=== PATIENT | male | born 1955 | race Caucasian/White ===

== ENCOUNTER 2025-03-30 16:37 | Outpatient (REF) | payer OTHER, SELFPAY ==
--- NOTE | ~2025-03-30 | XR_ITS ---
EXAMINATION: XR CHEST 2 VIEWS HISTORY: PULMONARY DISEASE COMPARISON: There are no prior studies for comparison. FINDINGS: PA and lateral views of the chest are submitted. The lungs are expanded and clear. There is no pleural effusion, pneumothorax, or pulmonary vascular congestion. The heart is normal in size. There is degenerative disc disease of the spine. XR/XR chest 2V IMPRESSION: Clear lungs. Electronically signed by: John Ascencio MD 04/02/2025 08:15 AM EDT
--- OUTSIDE RECORDS SUMMARY | 2025-03-30 16:43 | XMS_ITS ---
Author Organization John Wynn III, MD Address [address] [place] [address] [place] [phone] Care Team Providers Care Technology Officer Name Role Phone John Wynn Primary Care Provider REASON FOR VISIT Refills Medications Medication SIG (Take, Route, Fr equency, Duration) Notes Start Date End Date Status metFORMIN HCl 1000 MG 1 tablet with a me al Orally Twice a day for 30 days Active Social History Sex Assigned At : Social History Observation Description Sex Assigned At Male Encounters Encounter Location Date Provider Diagnosis John Wynn III, MD [address] [place] [address] [place] [id number] 01/22/2025 John Wynn Type 2 diabetes mellitus without complication E11.9 Assessments Encounter Date Diagnosis (ICD Code) Assessment Notes Treat ment Notes Treatment Clinical Notes 01/22/2025 Type 2 diabetes mellitus without complication (ICD-10 - E11.9) His hemoglobin A1c is 7.8. He is compliant with all his medications. He is trying to lose weight and consume a healthy diet. He is up-to-date with ophthalmology. He does not wish to test fasting glucose. He will be seen frequently. Current therapy was continued. We had a long discussion today about lifestyle moodification, regular exercise, healthy diabetic diet and aggressive weighht loss. Plan Of Treatment Medication Medication Name Sig Start Date Stop Date Notes metFORMIN HCl 1000 MG 1 tablet with a me al Orally Twice a day for 30 days Next Appt Details Provider Name:John Petersonrne, 05/04/2025 04:00:00 PM, [address] [place] [address] [address], [place], [id number], Provider Name:John Pickensne, 04/01/2026 04:00:00 PM, [address] [place] [address] [address], [place], [address], Progress Notes * Wood BRAGADOB:1955 (69 yo M)Acc No.[id number]:01/22/2025 Patient:?Wood BRAGA :1955???Age:69 Y???Sex:Male Address:[address] [place] [id number] * Refills? Refill metFORMIN HCl Tablet, 1000 MG, Orally, 60 Tablet, 1 tablet with a meal, Twice a day, 30 days, Refills=11 * true * Date:? Generated for Navi lowery/Hamilton/eTransmitting on:?03/30/2025 04:43 PM EDT
--- OUTSIDE RECORDS SUMMARY | 2025-03-30 16:43 | XMS_ITS ---
Author Organization John Wynn III, MD Address [address] [place] [address] [place] [address] Care Team Providers Care Magnetic Locater Name Role Phone John Wynn Primary Care Provider Allergies Allergen (clinical drug ingredient) Drug/Non Drug Allergy documented on EMR Reaction Allergy Type Onset Date Status Lucien Eye Drop Dilator (uncoded) Unknown Allergy Active REASON FOR VISIT Anxiety, Depression, Hypertension, Diabetes, Hyperlipidemia, Obesity, COPD Medications Medication SIG (Take, Route, Fr equency, Duration) Notes Start Date End Date Status Simvastatin 40 MG TAKE 1 TABLET BY ONCE DAILY IN THE EVENING Active metFORMIN HCl 1000 MG 1 tablet with a me al Orally Twice a day Active glyBURIDE 5 MG 1 tablet Orally Twice a day Active Sertraline HCl 50 MG 1 tablet Orally Onc e a day for 30 days 02/02/2025 Active Social History Tobacco Use: Social History Observation Description Date Details (start date - stop date) Current Smoker NA - NA Sex Assigned At : Social History Observation Description Sex Assigned At Male Tobacco Use/Smoking Question Answer Notes Patient is a current smoker How often do you smoke cigarettes? every day How many cigarettes a day do you smoke? 6-10 How soon after you wake up d o you smoke your first cigarette? 31-60 minutes Are you interested in quitting? Not ready to cee t Additional Findings: Tobacco User Light cigarett e smoker ((1-9 cigs/day) Problems Problem Type SNOMED Code ICD Code Onset Dates Problem Status W/U Status Risk Notes Problem [id number] Overweight (E66.3) Active confirmed He has lost 11 pounds in his body mass index is 28. We discussed diet and nutrition at length today. 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 I have given him a trial of sertraline for anxiety disorder and depression. He is going to call me if he has any side effects. Vital Signs Temperature 99.3 degrees Fahrenheit 02/03/20 25 Blood pressure systolic 130 mm Hg 02/03/20 25 Blood pressure diastolic 87 mm Hg 025 Heart Rate 90 /min 02/02/2025 Height 65 in 02/02/2025 Weight 172 lbs 02/02/2025 BMI 28.62 kg/m2 02/02/2025 Encounters Encounter Location Date Provider Diagnosis John Wynn III, MD [address] [place] [address] [facility] [address] 02/02/2025 John Wynn Type 2 diabetes joe itus without complication E11.9 ; Chronic obstructive pulmonary disease, unspecified COPD type J44.9 ; Essential hypertension I10 ; Tobacco dependence F17.200 ; Hyperlipidemia E78.5 ; BPH (benign prostatic hyperplasia) N40.0 ; Overweight E66.3 and Agitated depression F32.2 Assessments Encounter Date Diagnosis (ICD Code) Assessment Notes Treat ment Notes Treatment Clinical Notes 02/02/2025 Type 2 diabetes mellitus without complication (ICD-10 - E11.9) His hemoglobin A1c is 6.7. He is compliant with all his medications. He is trying to lose weight and consume a healthy diet. He is up-to-date with ophthalmology. He does not wish to test fasting glucose. He will be seen frequently. Current therapy was continued. We had a long discussion today about lifestyle moodification, regular exercise, healthy diabetic diet and aggressive weighht loss. 02/02/2025 Chronic obstructive pulmonary disease, unspecified COPD type (ICD-10 - J44.9) His breathing is unlabored today and he is moving air without difficulty. His mucous membranes are pink. The COPD is stable. I reviewed with him a strategy for weight loss, and smoking cessation. 02/02/2025 Essential hypertension (ICD-10 - I10) His blood pressure today is 130/87 and he has been compliant with his medications. I strongly recommended sodium restriction and aggressive weight loss. 02/02/2025 Tobacco dependence (ICD-10 - F17.200) I have strongly recommended he stop smoking ;and have discussed several strategies for smoking cessation. 02/02/2025 Hyperlipidemia (ICD-10 - E78.5) the current fasting lipid profile shows his values to be in range. No changes needed in his regimen. 02/02/2025 BPH (benign prostati c hyperplasia) (ICD-10 - N40.0) He rises from sleep about twice a night to urinate. it depends upon fluid intake. We discussed ways in which lifestyle modification. Reduce his nocturia. 02/02/2025 Overweight (ICD-10 - E66.3) He has lost 11 pounds in his body mass index is 28. We discussed diet and nutrition at length today. 02/02/2025 Agitated depression (ICD-10 - F32.2) He is depressed and losing weight and unable to relax with racing thoughts at night and insomnia. I have given him a trial of sertraline for anxiety disorder and depression. He is going to call me if he has any side effects. Plan Of Treatment Medication Medication Name Sig Start Date Stop Date Notes Simvastatin 40 MG TAKE 1 TABLET BY MARIANO TH ONCE DAILY IN THE EVENING metFORMIN HCl 1000 MG 1 tablet with a me al Orally Twice a day glyBURIDE 5 MG 1 tablet Orally Twice a day Sertraline HCl 50 MG 1 tablet Orally Onc e a day for 30 days 02/02/2025 Next Appt Details Follow Up: 3 Weeks, Reason: Office visit Provider Name:John Wynn, 05/04/2025 04:00:00 PM, [address] [place] [address] [address], [place], [phone], Provider Name:John Wynn, 04/01/2026 04:00:00 PM, [address] [place] [address] [place], [phone], Progress Notes * Randy BRAGA:1955 (69 yo M)Acc No.[id number]:02/02/2025 Progress Notes Patient:Wood ZAMORA Provider:?John Wynn MD :1955???Age:69 Y???Sex:Male Zen e:02/02/2025 Address:[address] [place] [address], [facility] [place], [id number] Subjective: * Chief Complaints: * ???AnxietyDepressionHyperten sionDiabetesHyperlipidemiaObesityCOPD * HPI: ???COVID-19 Screening:?He comes to the office today having requested the visit because he is feeling very anxious and depressed.? He is working at a new job now which she likes very much but they want him to take more responsibility.? He says he has difficulty sleeping as his mind is racing.? He worries about everything and cannot relax.? He never feels rested.? He WEIGHS feels fail tasks.? This is making him exhausted.? I have discussed anxiety disorder with him at some length that really decided to try a course of sertraline.? If necessary he will be referred to a therapist for cognitive therapy. Blood work that was done January 20, 2025 showed white blood cell count 7.6 hematocrit 44.3 platelets 205 glucose 123 BUN 9 creatinine 0.69 total cholesterol 171 triglycerides 76 HDL 55 LDL 102 he passed a 0.1 A1c 6.7. ?Questions?Have you had any new onset fever, chills, cough, congestion, sore throat, shortness of breath, muscle aches??No * ROS:?General/Constitutional:?pain?only normal aches and pains.?Chills?denies.?Fatigue?admits.?Fever?denies.?ENT:?Decreased hearing?denies.?Respiratory:?Cough?resolved.?Cardiovascular:?Chest pain with exertion?denies.?Dyspnea on exertion?denies.?Shortness of breath?denies.?Gastrointestinal:?Constipation?occasional.?Decreased appetite?denies.?Diarrhea?denies.?Heartburn?denies.?Nausea?denies.?Rectal bleeding?denies.?Vomiting?denies.?Hematology:?bruising?denies.?petechiae?denies.?Swollen glands?none have been noted.?Genitourinary:?Frequent urination?once a night.?Musculoskeletal:?Muscle aches?denies.?Painful joints?denies.?Sciatica?denies.?Weakness?denies.?Skin:?Itching?denies.?Rash?denies.?Skin lesion(s)?denies.?Neurologic:?Difficulty speaking?denies.?Dizziness?denies.?Headache?denies.?Low back pain?denies.?Psychiatric:?Depressed mood?which is moderate.? * Medical History:? * Surgical History:?vasectomy tonsillectomy No history * Hospitalization/Major Diagno stic Procedure:?No history * Family History:?Father: dece ased 66 yrs, cancer, diagnosed with Cancer.?Mother: 77 yrs, alzheimer.?1 brother(s) , 1 sister(s) - healthy. 2 son(s) - healthy. .? * Social History:?Tobacco Use:?Tobacco Use/Smoking?Patient is a?current smoker ?How often do you smoke cigarettes??every day ?How many cigarettes a day do you smoke??6-10 ?How soon after you wake up do you smoke your first cigarette??31-60 minutes ?Are you interested in quitting??Not ready to quit ?Additional Findings: Tobacco User?Light cigarette smoker ((1-9 cigs/day) ???Patient smokes cigars. 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 He was born in [facility]. Smoking: The patient has reduced his smoking from seven packs a week to two packs a week and has set a goal to further reduce this to one pack a week by Humphrey. * Medications:?TakingSimvastat in 40 MG Tablet TAKE 1 TABLET BY MOUTH ONCE DAILY IN THE EVENING glyBURIDE 5 MG Tablet 1 tablet Orally Twice a day metFORMIN HCl 1000 MG Tablet 1 tablet with a meal Orally Twice a day Medication List reviewed and reconciled with the patientTaking Simvastatin 40 MG Tablet TAKE 1 TABLET BY MOUTH ONCE DAILY IN THE EVENING Taking glyBURIDE 5 MG Tablet 1 tablet Orally Twice a day Taking metFORMIN HCl 1000 MG Tablet 1 tablet with a meal Orally Twice a day Medication List reviewed and reconciled with the patient * Allergies:?Lucien Eye Drop Dilatorno[Allergies Verified] Objective: * Vitals:?Ht: 65, Wt:172, BMI: 28.62, BP:130/87, HR:90, Temp:99.3, Ht-cm: 165.1, Wt-k.02. * Examination: ???General Examination: ?GENERAL APPEARANCE:?pleasant, well nourished, well developed, in no acute distress, calm and relaxed, overweight, man.?HEAD:?atraumatic, normocephalic.?EYES:?eomi, perrla, anicteric, conjugate.?EARS:?normal.?NOSE:?septum intact.?ORAL CAVITY:?normal, unremarkable.?NECK/THYROID:?no jugular venous distention, no carotid bruit, thyroid normal.?LYMPH NODES:?no enlarged lymph nodes,spleen normal.?SKIN:?no suspicious lesions, anicteric.?HEART:?no clicks, gallops, murmurs, or rubs, regular rhythm, S1, S2 normal, no s3, or vascular bruits.?LUNGS:?, diminished breath sounds throughout, no wheezes, rales, rhonchi, good air movement.?BREASTS:??no masses palpable bilaterally.?ABDOMEN:?bowel sounds normal, no ascites, no organomegaly, no mass, overweight.?RECTAL EXAM:?not examined.?MUSCULOSKELETAL:?extremities unremarkable, no clubbing, cyanosis or edema.?PERIPHERAL PULSES:?normal.?NEUROLOGIC:?alert and oriented, cranial nerves 2-12 grossly intact, deep tendon reflexes 2+ symmetrical, motor strength normal upper and lower extremities, sensory exam intact.?PSYCH:?alert, oriented, thought process logical, goal directed, speech clear, cognitive function intact, Appears anxious and depressed, speech is pressured.? Assessment: * Assessment: 1.?Chronic obstructive pulmo nary disease, unspecified COPD type - J44.9 (Primary)???Notes :His breathing is unlabored today and he is moving air without difficulty. His mucous membranes are pink. The COPD is stable. I reviewed with him a strategy for weight loss, and smoking cessation.???2.?Type 2 diabetes mellitus without complication - E11.9???Notes :His hemoglobin A1c is 6.7. He is compliant with all his medications. He is trying to lose weight and consume a healthy diet. He is up-to-date with ophthalmology. He does not wish to test fasting glucose. He will be seen frequently. Current therapy was continued. We had a long discussion today about lifestyle moodification, regular exercise, healthy diabetic diet and aggressive weighht loss.???3.?Essential hypertension - I10???Notes :His blood pressure today is 130/87 and he has been compliant with his medications. I strongly recommended sodium restriction and aggressive weight loss.???4.?Tobacco dependence - F17.200???Notes :I have strongly recommended he stop smoking ;and have discussed several strategies for smoking cessation.???5.?Hyperlipidemia - E78.5???Notes :the current fasting lipid profile shows his values to be in range. No changes needed in his regimen.???6.?BPH (benign prostatic hyperplasia) - N40.0???Notes :He rises from sleep about twice a night to urinate. it depends upon fluid intake. We discussed ways in which lifestyle modification. Reduce his nocturia.???7.?Overweight - E66.3???Notes :He has lost 11 pounds in his body mass index is 28.? We discussed diet and nutrition at length today.???8.?Agitated depression - F32.2???Notes :He is depressed and losing weight and unable to relax with racing thoughts at night and insomnia. I have given him a trial of sertraline for anxiety disorder and depression.? He is going to call me if he has any side effects.??? Plan: * Treatment: 2.?Others? Continue Simvastatin Tablet, 40 MG, TAKE 1 TABLET BY MOUTH ONCE DAILY IN THE EVENING.?? * Procedure Codes:? * Preventive Medicine:? ??Counseling:?Care goal follow-up plan:?Counseling for abnormal BMI given?Yes ?Above Normal BMI Follow-up?Dietary management education, guidance, and counseling, Dietary needs education ?Smoking/Tobacco Use?Patient counseled on the dangers of tobacco use and urged to quit.?02/02/2025 ?Patient Lifestyle Goals?Patient wants to quit ?Treatment Goals?Set a quit date, Cut down by 1 cigarette a week ?Barriers?Social smoker, Stress ?Self-Management Plan?Make a plan to cut down number of cigarettes over time and set a date to work towards quitting ??DM Care Plan:?Patient Lifestyle Goals?Patient wants to be able to manage diabetes without too much effort.?Treatment Goals?HbA1C < 7.0, Blood Sugars less than < 115.?Barriers?no barriers.?Self-Managment Goals?Work on weight loss, with a goal of losing 1 lb per week.? ??COPD Care Plan:?Patient Lifestyle Goals?Reduce number of ED and hospitalizations, Relieve symptoms and improve quality of life, Be able to be more active with friends and family.?Treatment Goals?Quit Smoking.?Barriers?no barriers.?Self-Managment Goals?Make a plan for quitting smoking.? * Follow Up:?3 Weeks (Reason: Office visit) * Images: * Sign off status: Completed true * Provider:?John Wynn MD Date:?01/20 Generated for Navi lowery/Hamilton/Jennifer on:?03/30/2025 04:43 PM EDT History and Physical Notes * HPI (History of Present Illness) Category Sub-Category Detail Notes COVID-19 Screening Questions Have you had any new onset fever, chills, cough, congestion, sore throat, shortness of breath, muscle aches?: No Examination Category Sub-Category Detail Notes General Examination GENERAL APPEARANCE: pleasant , well nourished, well developed, in no acute distress, calm and relaxed, overweight, man HEAD: atraumatic, normocep halic EYES: eomi, perrla, anicte yunior, conjugate EARS: normal NOSE: septum intact NECK/THYROID: no jugular venous di stention, no carotid bruit, thyroid normal HEART: no clicks, gallops, murmurs, or rubs, regular rhythm, S1, S2 normal, no s3, or vascular bruits LUNGS: , diminished breath sounds throughout, no wheezes, rales, rhonchi, good air movement ABDOMEN: bowel sounds normal, no ascites, no organomegaly, no mass, overweight NEUROLOGIC: alert and oriented, cranial nerves 2-12 grossly intact, deep tendon reflexes 2+ symmetrical, motor strength normal upper and lower extremities, sensory exam intact SKIN: no suspicious lesion s, anicteric PERIPHERAL PULSES: normal BREASTS: no masses palpable b ilaterally MUSCULOSKELETAL: extremities unremark able, no clubbing, cyanosis or edema LYMPH NODES: no enlarged lymph no sofía,spleen normal RECTAL EXAM: not examined PSYCH: alert, oriented, tho ught process logical, goal directed, speech clear, cognitive function intact, Appears anxious and depressed, speech is pressured ORAL CAVITY: normal, unremarkable
--- OUTSIDE RECORDS SUMMARY | 2025-03-30 16:43 | XMS_ITS ---
Author Organization John Wynn III, MD Address [address] [place] [address] [place] [address] Care Team Providers Care Shade Hanger Name Role Phone John Wynn Primary Care Provider Allergies Allergen (clinical drug ingredient) Drug/Non Drug Allergy documented on EMR Reaction Allergy Type Onset Date Status No Known Food Allergy Unknown Drug Allergy Active Lucien Eye Drop Dilator (uncoded) Unknown Allergy Active Results Component Value Reference Range Notes URINE DIP STICK Reviewed date:03/30/2025 04:22:02 PM Interpretation: Performing Lab: Notes/Report: SG 1.030 1.005 - 1.025 pH 5.0 5.0 - 9.0 ALEC 70 + Negative - NIT Negative Negative - PRO 15 Negative - Trace GLU Negative Negative - KET 5 Negative - UBG 0.2 0.1 - 1.8 NICOLE Negative 0.2 - 1.3 BLD (+)(-) Negative - Menstrating N/A REASON FOR VISIT Annual Exam Medications Medication SIG (Take, Route, Fr equency, Duration) Notes Start Date End Date Status glyBURIDE 5 MG 1 tablet Orally Twice a day Active metFORMIN HCl 1000 MG 1 tablet with a me al Orally Twice a day Active Simvastatin 40 MG TAKE 1 TABLET BY ONCE DAILY IN THE EVENING Active Sertraline HCl 50 MG 1 tablet Orally Once a day Active Social History Tobacco Use: Social History Observation Description Date Details (start date - stop date) Current Smoker NA - NA Sex Assigned At : Social History Observation Description Sex Assigned At Male Tobacco Control (Standard) Question Answer Notes Tobacco use: Current smoker How often do you smoke cigarettes? Every day How many cigarettes a day do you smoke? 5 or les s How soon after you wake up do you smoke your fir st cigarette? After 60 minutes Are you interested in quitting? Not ready to cee t Additional Findings: Tobacco user Cigar smoker AUDIT-C (Standard) Question Answer Notes Did you have a drink containing alcohol in the p ast year? No Points 0 Interpretation Negative Vital Signs Temperature 99.1 degrees Fahrenheit 03/30/20 25 Blood pressure systolic 132 mm Hg 03/30/20 25 Blood pressure diastolic 70 mm Hg 025 Heart Rate 81 /min 03/30/2025 Height 65 in 03/30/2025 Weight 169 lbs 03/30/2025 BMI 28.12 kg/m2 03/30/2025 Encounters Encounter Location Date Provider Diagnosis John Wynn III, MD [address] [place] [address] [place] [address] 03/30/2025 John Wynn Type 2 diabetes joe itus without complication E11.9 ; Annual physical exam Z00.00 ; Hyperlipidemia E78.5 ; BPH (benign prostatic hyperplasia) N40.0 ; UTI symptoms R39.9 and Chronic obstructive pulmonary disease, unspecified COPD type J44.9 Assessments Encounter Date Diagnosis (ICD Code) Assessment Notes Treat ment Notes Treatment Clinical Notes 03/30/2025 Type 2 diabetes mellitus without complication (ICD-10 [...] healthy diabetic diet and aggressive weighht loss. 03/30/2025 Annual physical exam (ICD-10 - Z00.00) 03/30/2025 Hyperlipidemia (ICD-10 - E78.5) 03/30/2025 BPH (benign prostati c hyperplasia) (ICD-10 - N40.0) 03/30/2025 UTI symptoms (ICD-10 - R39.9) 03/30/2025 Chronic obstructive pulmonary disease, unspecified COPD type (ICD-10 - J44.9) Plan Of Treatment Medication Medication Name Sig Start Date Stop Date Notes glyBURIDE 5 MG 1 tablet Orally Twice a day metFORMIN HCl 1000 MG 1 tablet with a me al Orally Twice a day Simvastatin 40 MG TAKE 1 TABLET BY MARIANO TH ONCE DAILY IN THE EVENING Sertraline HCl 50 MG 1 tablet Orally Once a day 02/02/2025 Pending Test Test Name Order Date PROFILE, FASTING (COMPREHENSIVE METABOLI C) 03/30/2025 PSA, TOTAL 03/30/2025 CBC w DIFF 03/30/2025 SED RATE (ESR) 03/30/2025 URINALYSIS (UA) 03/30/2025 XR CHEST 2 VIEW PA & LAT 03/30/2025 Lipid Panel 03/30/2025 Microalbumin, Random 03/30/2025 Hemoglobin A1c 03/30/2025 Next Appt Details Follow Up: 3 Weeks, Reason: OV Provider Name:John Wynn, 05/04/2025 04:00:00 PM, [address] [place] [address] [address], [place], [phone], Provider Name:John Wynn, 04/01/2026 04:00:00 PM, [address] [place] [address] [address], [place], [id number], Progress Notes * Wood BRAGADOB:1955 (69 yo M)Acc No.[id number]:03/30/2025 Progress Notes Patient:?MARIA LUZ Wood Provider:?John Wynn MD :1955???Age:69 Y???Sex:Male Zen e:03/30/2025 Address:[address] [place] [address] [id number] Subjective: * Chief Complaints: * ???1. Annual Exam. * HPI: ???Depression Screening:? noct x 1. ?PHQ-9?Little interest or pleasure in doing things?Not at all ?Feeling down, depressed, or hopeless?Not at all ?Trouble falling or staying asleep, or sleeping too much?Not at all ?Feeling tired or having little energy?Not at all ?Poor appetite or overeating?Not at all ?Feeling bad about yourself or that you are a failure, or have let yourself or your family down?Not at all ?Trouble concentrating on things, such as reading the newspaper or watching television?Not at all ?Moving or speaking so slowly that other people could have noticed; or the opposite, being so fidgety or restless that you have been moving around a lot more than usual?Not at all ?Thoughts that you would be better off or of hurting yourself in some way?Not at all ?Total Score?0 ???COVID-19 Screening:?Questions?Have you had any new onset fever, chills, cough, congestion, sore throat, shortness of breath, muscle aches??No ???Fall Risk Screening:?Fall History?Have you had any falls with injury in the past year??No ?Have you had two or more falls in the past year??No ?Fall Risk Assessment:?No falls in the past year ???SDOH Questions:?SDOH Questions?In the past year have you been worried about losing your housing??No ?In the past year have you or any family members you live with been unable to get any of the following when it was really needed? Check all that apply:?None * ROS:?General/Constitutional:?pain?only normal aches and pains.?Chills?denies.?Fatigue?admits.?Fever?denies.?ENT:?Decreased hearing?denies.?Respiratory:?Cough?denies.?Cardiovascular:?Chest pain with exertion?denies.?Dyspnea on exertion?denies.?Shortness of breath?denies.?Gastrointestinal:?Constipation?denies.?Decreased appetite?denies.?Diarrhea?denies.?Heartburn?denies.?Nausea?denies.?Rectal bleeding?denies.?Vomiting?denies.?Hematology:?bruising?denies.?petechiae?denies.?Swollen glands?none have been noted.?Genitourinary:?Frequent urination?denies.?Musculoskeletal:?Muscle aches?denies.?Painful joints?denies.?Sciatica?denies.?Weakness?denies.?Skin:?Itching?denies.?Rash?denies.?Skin lesion(s)?denies.?Neurologic:?Difficulty speaking?denies.?Dizziness?denies.?Headache?denies.?Low back pain?denies.?Psychiatric:?Depressed mood?denies.? * Medical History:?Hypertensio n, Obesity, Hyperlipidemia, Smoker, COPD, Retinal detachment left eye 2011, Bone sppur left heel, Retinal detachment right eye 11/2013, Colonoscopy 05/2015 negative, Type 2 diabetes mellitus, The patient is currently on metformin, glyburide, and simvastatin for his diabetes., Anxiety and depression in January 2025. * Surgical History:?vasectomy , tonsillectomy . * Hospitalization/Major Diagno stic Procedure:?No history . * Family History:?Father: dece ased 66 yrs, cancer, diagnosed with Cancer.?Mother: 77 yrs, alzheimer.?1 brother(s) , 1 sister(s) - healthy. 2 son(s) - healthy. .? * Social History:?Tobacco Use:?Tobacco Control (Standard)?Tobacco use:?Current smoker ?How often do you smoke cigarettes??Every day ?How many cigarettes a day do you smoke??5 or less ?How soon after you wake up do you smoke your first cigarette??After 60 minutes ?Are you interested in quitting??Not ready to quit ?Additional Findings: Tobacco user?Cigar smoker ???Drugs/Alcohol:?Drugs?Have you used drugs other than those for medical reasons in the past 12 months??No ???Drug/Alcohol:?AUDIT-C (Standard)?Did you have a drink containing alcohol in the past year??No ?Points?0 ?Interpretation?Negative ???Patient smokes cigars. He is with 2 sons and works in [employer]. He was born in [facility]. Smoking: The patient has reduced his smoking from seven packs a week to two packs a week and has set a goal to further reduce this to one pack a week by Humphrey. * Medications:?Taking metFORMI N HCl 1000 MG Tablet 1 tablet with a meal Orally Twice a day , Taking glyBURIDE 5 MG Tablet 1 tablet Orally Twice a day , Taking Simvastatin 40 MG Tablet TAKE 1 TABLET BY MOUTH ONCE DAILY IN THE EVENING , Taking Sertraline HCl 50 MG Tablet 1 tablet Orally Once a day , Medication List reviewed and reconciled with the patient * Allergies:?Lucien Eye Drop Dilator, No Known Food Allergy. Objective: * Vitals:?Ht: 65, Wt:169, BMI: 28.12, BP:132/70, HR:81, Temp:99.1, Ht-cm: 165.1, Wt-k.66. * Examination: ???General Examination: ?GENERAL APPEARANCE:?pleasant, well nourished, well developed, in no acute distress, calm and relaxed.?HEAD:?atraumatic, normocephalic.?EYES:?eomi, perrla, anicteric, conjugate.?EARS:?normal.?NOSE:?septum intact.?ORAL CAVITY:?normal, unremarkable.?NECK/THYROID:?no jugular venous distention, no carotid bruit, thyroid normal.?LYMPH NODES:?no enlarged lymph nodes,spleen normal.?SKIN:?no suspicious lesions, anicteric.?HEART:?no clicks, gallops, murmurs, or rubs, regular rhythm, S1, S2 normal, no s3, or vascular bruits.?LUNGS:?clear to auscultation .?BREASTS:??no masses palpable bilaterally.?ABDOMEN:?bowel sounds normal, no ascites, no organomegaly, no mass.?RECTAL EXAM:?not examined.?MUSCULOSKELETAL:?extremities unremarkable, no clubbing, cyanosis or edema.?PERIPHERAL PULSES:?normal.?NEUROLOGIC:?alert and oriented, cranial nerves 2-12 grossly intact, deep tendon reflexes 2+ symmetrical, motor strength normal upper and lower extremities, sensory exam intact.?PSYCH:?alert, oriented.? Assessment: * Assessment: 1.?Annual physical exam - Z0 0.00 (Primary)???2.?Type 2 diabetes mellitus without complication - E11.9???Notes [...] exercise, healthy diabetic diet and aggressive weighht loss.???3.?Hyperlipidemia - E78.5???4.?BPH (benign prostatic hyperplasia) - N40.0???5.?UTI symptoms - R39.9???6.?Chronic obstructive pulmonary disease, unspecified COPD type - J44.9??? Plan: * Treatment: ? Value Reference Range ?SG 1.030 1.005 - 1.025 * ?pH 5.0 5.0 - 9.0 * ?ALEC 70 + Negative - * ?NIT Negative Negative - * ?PRO 15 Negative - Trac e * ?GLU Negative Negative - * ?KET 5 Negative - * ?UBG 0.2 0.1 - 1.8 * ?NICOLE Negative 0.2 - 1.3 * ?BLD (+)(-) Negative - * ?Menstrating N/A 2.?Type 2 diabetes mellitus without complication? Continue metFORMIN HCl Tablet, 1000 MG, 1 tablet with a meal, Orally, Twice a day;?Continue glyBURIDE Tablet, 5 MG, 1 tablet, Orally, Twice a day;?Continue Sertraline HCl Tablet, 50 MG, 1 tablet, Orally, Once a day.?LAB: PROFILE, FASTING (COMPREHENSIVE METABOLIC) ?LAB: PSA, TOTAL ?LAB: CBC w DIFF ?LAB: SED RATE (ESR) ?LAB: URINALYSIS (UA) ?LAB: Lipid Panel ?LAB: Microalbumin, Random ?LAB: Hemoglobin A1c3.?Hyperlipidemia?LAB: PROFILE, FASTING (COMPREHENSIVE METABOLIC) ?LAB: PSA, TOTAL ?LAB: CBC w DIFF ?LAB: SED RATE (ESR) ?LAB: URINALYSIS (UA) ?LAB: Lipid Panel ?LAB: Microalbumin, Random ?LAB: Hemoglobin A1c4.?BPH (benign prostatic hyperplasia)?LAB: PROFILE, FASTING (COMPREHENSIVE METABOLIC) ?LAB: PSA, TOTAL ?LAB: CBC w DIFF ?LAB: SED RATE (ESR) ?LAB: URINALYSIS (UA) ?LAB: Lipid Panel ?LAB: Microalbumin, Random ?LAB: Hemoglobin A1c5.?UTI symptoms?LAB: PROFILE, FASTING (COMPREHENSIVE METABOLIC) ?LAB: PSA, TOTAL ?LAB: CBC w DIFF ?LAB: SED RATE (ESR) ?LAB: URINALYSIS (UA) ?LAB: Lipid Panel ?LAB: Microalbumin, Random ?LAB: Hemoglobin A1c6.?Chronic obstructive pulmonary disease, unspecified COPD type?Imaging: XR CHEST 2 VIEW PA & LAT7.?Others? Continue Simvastatin Tablet, 40 MG, TAKE 1 TABLET BY MOUTH ONCE DAILY IN THE EVENING.?? * Procedure Codes:?18915 URINE -NO MICRO * Follow Up:?3 Weeks (Reason: OV) * Images: * The named appointment provid er may or may not be the originator of this progress note, and it is not deemed complete until electronically signed by the appointment provider. Sign off status: Pending * Provider:?John Wynn MD Date:?07/2025 Generated for Navi lowery/[place]/eTransmitting on:?03/30/2025 04:43 PM EDT History and Physical Notes * HPI (History of Present Illness) Category Sub-Category Detail Notes Depression Screening PHQ-9 Little inte rest or pleasure in doing things: Not at all Feeling down, depressed, or hopeless: No t at all Trouble falling or staying asleep, or sl eeping too much: Not at all Feeling tired or having little energy: N ot at all Poor appetite or overeating: Not at all Feeling bad about yourself o r that you are a failure, or have let yourself or your family down: Not at all Trouble concentrating on thi ngs, such as reading the newspaper or watching television: Not at all Moving or speaking so slowly that other people could have noticed; or the opposite, being so fidgety or restless that you have been moving around a lot more than usual: Not at all Thoughts that you would be b jaydon off or of hurting yourself in some way: Not at all Total Score: 0 Fall Risk Screening Fall History Have you had any falls with injury in the past year?: No Have you had two or more falls in the year?: No Fall Risk Assessment:: No falls in the year COVID-19 Screening Questions Have you had any new onset fever, chills, cough, congestion, sore throat, shortness of breath, muscle aches?: No SDOH Questions SDOH Questions In the past year have you been worried about losing your housing?: No In the past year have you or any family members you live with been unable to get any of the following when it was really needed? Check all that apply:: None Examination Category Sub-Category Detail Notes General Examination GENERAL APPEARANCE: pleasant , well nourished, well developed, in no acute distress, calm and relaxed HEAD: atraumatic, normocep halic EYES: eomi, perrla, anicte yunior, conjugate EARS: normal NOSE: septum intact NECK/THYROID: no jugular venous di stention, no carotid bruit, thyroid normal HEART: no clicks, gallops, murmurs, or rubs, regular rhythm, S1, S2 normal, no s3, or vascular bruits LUNGS: clear to auscultatio n ABDOMEN: bowel sounds normal, no ascites, no organomegaly, no mass NEUROLOGIC: alert and oriented, cranial nerves 2-12 grossly intact, deep tendon reflexes 2+ symmetrical, motor strength normal upper and lower extremities, sensory exam intact SKIN: no suspicious lesion s, anicteric PERIPHERAL PULSES: normal BREASTS: no masses palpable b ilaterally MUSCULOSKELETAL: extremities unremark able, no clubbing, cyanosis or edema LYMPH NODES: no enlarged lymph no sofía,spleen normal RECTAL EXAM: not examined PSYCH: alert, oriented ORAL CAVITY: normal, unremarkable
--- OUTSIDE RECORDS SUMMARY | 2025-03-30 16:43 | XMS_ITS | Patient Health Record ---
Author Organization John Wynn III, MD Address [address] [place] [address] [place] [address] Care Team Providers Care Injection Molding Machine Offbearer Name Role Phone John Wynn [facility] [...] 1.3 BLD (+)(-) Negative - Menstrating N/A Reason For Referral No Information Medications Medication SIG (Take, Route, Fr equency, Duration) Notes Start Date End Date Status glyBURIDE 5 MG 1 tablet Orally Twice a day Active metFORMIN HCl 1000 MG 1 tablet with a me al Orally Twice a day Active Simvastatin 40 MG TAKE 1 TABLET BY ONCE DAILY IN THE EVENING Active Sertraline HCl 50 MG 1 tablet Orally Once a day 03 / Active Immunizations Vaccine Route Administration Date Status Comme nts COVID- 19 Vaccine Unknown 11/16/2021 Administered covid vaccine (Pfizer) COVID PFIZER Unknown 11/16/2021 Administered COVID PFIZER Unknown 04/20/2021 Administered COVID PFIZER Unknown 05/11/2021 Administered Decline: Pneumococcal Unknown 09/07/2014 Refused Decline: Influenza Unknown 09/07/2014 Refused Social History Tobacco Use: Social History Observation [...] ast year? No Points 0 Interpretation Negative Problems Problem Type SNOMED Code ICD Code Onset Dates Problem Status W/U Status Risk Notes Problem 67949630 Hyperlipidemia (E78.5) Active confirmed the current fasting lipid profile shows his values to be in range. No changes needed in his regimen. Problem 408645922 Overweight (E66.3) Active confirmed He has lost 11 pounds in his body mass index is 28. We discussed diet and nutrition at length today. Problem Obesity due to excess calories (200528915) Other obesity due to excess calories (E66.09) Active confirmed his body mass index is 30.5. We discussed weight reduction strategies at length. I recommended he lose weight at a rate of 1 pound per week. Problem Obesity (090407528) Obesity, unspecified (E66.9) Active confirmed His body mass index is 30. He has lost 13 pounds her diet and exercise. He seems healthy and well today. We discussed his weight loss strategy and made a plan to continue to lose weight until the body mass index is normal. Problem 76772276 Serous retinal detachment, left eye (H33.22) Active confirmed I have emphasized with him the necessity to continue seeing the checker in regularly. He has recently had a procedure on 1 INR another is planning on the opposite. The details will be obtained. Problem Essential (primary) hypertension (I10) Active confirmed His blood pressure is currently normal and no change in his regimen was made today. We discussed sodium restriction and further weight loss. Problem Benign prostatic hyperplasia (525318991) BPH (benign prostatic hyperplasia) (N40.0) Active confirmed He rises from sleep about twice a night to urinate. it depends upon fluid intake. We discussed ways in which lifestyle modification. Reduce his nocturia. Problem 71313175 Chronic obstructive pulmonary disease, unspecified COPD type (J44.9) Active confirmed His breathing i s unlabored today and he is moving air without difficulty. His mucous membranes are pink. The COPD is stable. I reviewed with him a strategy for weight loss, and smoking cessation. Problem 77101985 Essential hypertension (I10) Active confirmed His blood pressure today is 130/87 and he has been compliant with his medications. I strongly recommended sodium restriction and aggressive weight loss. Problem 88727088 Type 2 diabetes mellitus without complication (E11.9) Active confirmed His hemoglobin A1c is 6.7. He is compliant with all his medications. He is trying to lose weight and consume a healthy diet. He is up-to-date with ophthalmology. He does not wish to test fasting glucose. He will be seen frequently. Current therapy was continued. We had a long discussion today about lifestyle moodification, regular exercise, healthy diabetic diet and aggressive weighht loss. Problem 62817827 Tobacco dependence (F17.200) Active confirmed I have strongly recommended he stop smoking ;and have discussed several strategies for smoking cessation. 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 I have given him a trial of sertraline for anxiety disorder and depression. He is going to call me if he has any side effects. Vital Signs Heart Rate 81 /min 03/30/2025 Temperature 99.1 degrees Fahrenheit 03/30/2025 Blood pressure diastolic 70 mm Hg 03/30/2025 Height 65 in 03/30/2025 Blood pressure systolic 132 mm Hg 03/30/2025 Weight 169 lbs 03/30/2025 BMI 28.12 kg/m2 03/30/2025 Encounters Encounter Location Date Provider Diagnosis John Wynn III, MD [address] [place] [address] [place], [place] [address] 03/30/2025 John Wynn Type 2 diabetes joe itus without complication E11.9 ; Annual physical exam Z00.00 ; Hyperlipidemia E78.5 ; BPH (benign prostatic hyperplasia) N40.0 ; UTI symptoms R39.9 and Chronic obstructive pulmonary disease, unspecified COPD type J44.9 John Wynn III, MD [address] [place] [address] [place] [address] 09/26/2024 John Wynn Type 2 diabetes joe itus without complication E11.9 ; Hyperlipidemia E78.5 ; Obesity, unspecified E66.9 ; Chronic obstructive pulmonary disease, unspecified J44.9 ; Tobacco dependence F17.200 and Essential (primary) hypertension I10 John Wynn III, MD [address] [place] [address] [place] [address] 10/31/2024 John Wynn Type 2 diabetes joe itus without complication E11.9 ; Tobacco dependence F17.200 ; Hyperlipidemia E78.5 ; BPH (benign prostatic hyperplasia) N40.0 ; Other obesity due to excess calories E66.09 ; Chronic obstructive pulmonary disease, unspecified J44.9 and Essential hypertension I10 John Wynn III, MD [address] [place] [address] [place] [address] 02/02/2025 John Wynn Type 2 diabetes joe itus without complication E11.9 ; Chronic obstructive pulmonary disease, unspecified COPD type J44.9 ; Essential hypertension I10 ; Tobacco dependence F17.200 ; Hyperlipidemia E78.5 ; BPH (benign prostatic hyperplasia) N40.0 ; Overweight E66.3 and Agitated depression F32.2 John Wynn III, MD [address] [place] [address] [place] [address] 04/03/2024 John Wynn Type 2 diabetes joe itus without complication E11.9 John Wynn III, MD [address] [place] [address] [place] [address] 01/22/2025 John Wynn Type 2 diabetes joe itus without complication E11.9 John Wynn III, MD [address] [place] [address] [place] [address] 01/22/2025 John Wynn Type 2 diabetes joe itus without complication E11.9 Assessments Encounter Date Diagnosis [...] healthy diabetic diet and aggressive weighht loss. 09/26/2024 Hyperlipidemia (ICD-10 - E78.5) His total cholesterol was 173. He is compliant with his medication and no change in his regimen is needed today. I strongly recommended continued weight loss and a healthy diet. 09/26/2024 Type 2 diabetes mellitus without complication (ICD-10 [...] healthy diabetic diet and aggressive weighht loss. 10/31/2024 Type 2 diabetes mellitus without complication (ICD-10 [...] healthy diabetic diet and aggressive weighht loss. 10/31/2024 Tobacco dependence (ICD-10 - F17.200) I have strongly recommended he stop smoking ;and have discussed several strategies for smoking cessation. 02/02/2025 Chronic obstructive pulmonary disease, unspecified COPD type (ICD-10 - J44.9) His breathing is unlabored today and he is moving air without difficulty. His mucous membranes are pink. The COPD is stable. I reviewed with him a strategy for weight loss, and smoking cessation. 02/02/2025 Type 2 diabetes mellitus without complication [...] healthy diabetic diet and aggressive weighht loss. 04/03/2024 Type 2 diabetes mellitus without complication (ICD-10 - E11.9) His hemoglobin A1c is 7.7. He is compliant with all his medications. He is trying to lose weight and consume a healthy diet. He is up-to-date with ophthalmology. He does not wish to test fasting glucose. He will be seen frequently. Current therapy was continued. We had a long discussion today about lifestyle moodification, regular exercise, healthy diabetic diet and aggressive weighht loss. 01/22/2025 Type 2 diabetes mellitus without complication [...] healthy diabetic diet and aggressive weighht loss. 01/22/2025 Type 2 diabetes mellitus without complication [...] 03/30/2025 Annual physical exam (ICD-10 - Z00.00) 09/26/2024 Obesity, unspecified (ICD-10 - E66.9) His body mass index is 30. He has lost 13 pounds her diet and exercise. He seems healthy and well today. We discussed his weight loss strategy and made a plan to continue to lose weight until the body mass index is normal. 10/31/2024 Hyperlipidemia (ICD-10 - E78.5) the current fasting lipid profile shows his values to be in range. No changes needed in his regimen. 02/02/2025 Essential hypertension (ICD-10 - I10) His blood pressure today is 130/87 and he has been compliant with his medications. I strongly recommended sodium restriction and aggressive weight loss. 03/30/2025 Hyperlipidemia (ICD-10 - E78.5) 09/26/2024 Chronic obstructive pulmonary disease, unspecified (ICD-10 - J44.9) He is comfortable breathing room air at rest and is only mildly short of breath with exertion. 10/31/2024 BPH (benign prostati c hyperplasia) (ICD-10 - N40.0) He rises from sleep about twice a night to urinate. it depends upon fluid intake. We discussed ways in which lifestyle modification. Reduce his nocturia. 02/02/2025 Tobacco dependence (ICD-10 - F17.200) I have strongly recommended he stop smoking ;and have discussed several strategies for smoking cessation. 03/30/2025 BPH (benign prostati c hyperplasia) (ICD-10 - N40.0) 09/26/2024 Tobacco dependence (ICD-10 - F17.200) I have strongly recommended he stop smoking ;and have discussed several strategies for smoking cessation. 10/31/2024 Other obesity due to excess calories (ICD-10 - E66.09) his body mass index is 30.5. We discussed weight reduction strategies at length. I recommended he lose weight at a rate of 1 pound per week. 02/02/2025 Hyperlipidemia (ICD-10 - E78.5) the current fasting lipid profile shows his values to be in range. No changes needed in his regimen. 03/30/2025 UTI symptoms (ICD-10 - R39.9) 09/26/2024 Essential (primary) hypertension (ICD-10 - I10) His blood pressure is currently normal and no change in his regimen was made today. We discussed sodium restriction and further weight loss. 10/31/2024 Chronic obstructive pulmonary disease, unspecified (ICD-10 - J44.9) He is comfortable breathing room air at rest and is only mildly short of breath with exertion. 02/02/2025 BPH (benign prostati c hyperplasia) (ICD-10 - N40.0) He rises from sleep about twice a night to urinate. it depends upon fluid intake. We discussed ways in which lifestyle modification. Reduce his nocturia. 03/30/2025 Chronic obstructive pulmonary disease, unspecified COPD type (ICD-10 - J44.9) 10/31/2024 Essential hypertension (ICD-10 - I10) His blood pressure today is 126/70 and he has been compliant with his medications. I strongly recommended sodium restriction and aggressive weight loss. 02/02/2025 Overweight (ICD-10 - E66.3) He has [...] has any side effects. Plan Of Treatment Pending Test Test Name Order Date PROFILE, FASTING (COMPREHENSIVE METABOLI C) 02/02/2022 PROFILE, FASTING (COMPREHENSIVE METABOLI C) 08/11/2023 PROFILE, FASTING (COMPREHENSIVE METABOLI C) 04/04/2021 PROFILE, FASTING (COMPREHENSIVE METABOLI C) 10/31/2024 PROFILE, FASTING (COMPREHENSIVE METABOLI C) 07/04/2019 PROFILE, FASTING (COMPREHENSIVE METABOLI C) 03/30/2025 PROFILE, FASTING (COMPREHENSIVE METABOLI C) 12/06/2020 PROFILE, FASTING (COMPREHENSIVE METABOLI C) 06/04/2020 PROFILE, FASTING (COMPREHENSIVE METABOLI C) 02/06/2020 PROFILE, FASTING (COMPREHENSIVE METABOLI C) 02/08/2023 PROFILE, FASTING (COMPREHENSIVE METABOLI C) 10/30/2019 PROFILE, FASTING (COMPREHENSIVE METABOLI C) 08/10/2022 PROFILE, FASTING (COMPREHENSIVE METABOLI C) 03/22/2024 PROFILE, FASTING (COMPREHENSIVE METABOLI C) 12/29/2018 HEMOGLOBIN A1C (GLYCOHEMOGLOBIN) 023 HEMOGLOBIN A1C (GLYCOHEMOGLOBIN) 019 HEMOGLOBIN A1C (GLYCOHEMOGLOBIN) 022 HEMOGLOBIN A1C (GLYCOHEMOGLOBIN) 023 HEMOGLOBIN A1C (GLYCOHEMOGLOBIN) 021 HEMOGLOBIN A1C (GLYCOHEMOGLOBIN) 019 HEMOGLOBIN A1C (GLYCOHEMOGLOBIN) 021 HEMOGLOBIN A1C (GLYCOHEMOGLOBIN) 020 HEMOGLOBIN A1C (GLYCOHEMOGLOBIN) 020 LIPID PANEL 02/06/2020 LIPID PANEL 10/30/2019 LIPID PANEL 02/08/2023 LIPID PANEL 02/02/2022 LIPID PANEL 08/11/2023 LIPID PANEL 07/04/2019 LIPID PANEL 12/06/2020 LIPID PANEL 06/04/2020 PSA, TOTAL 03/22/2024 PSA, TOTAL 10/31/2024 PSA, TOTAL 02/08/2023 PSA, TOTAL 03/30/2025 MICROALBUMIN, RANDOM 04/04/2021 MICROALBUMIN, RANDOM 02/02/2022 MICROALBUMIN, RANDOM 08/11/2023 MICROALBUMIN, RANDOM 02/08/2023 MICROALBUMIN, RANDOM 06/04/2020 CBC w DIFF 06/04/2020 CBC w DIFF 08/10/2022 CBC w DIFF 02/06/2020 CBC w DIFF 10/30/2019 CBC w DIFF 04/04/2021 CBC w DIFF 03/30/2025 CBC w DIFF 07/04/2019 CBC w DIFF 02/02/2022 CBC w DIFF 08/11/2023 CBC w DIFF 02/08/2023 CBC w DIFF 12/06/2020 SED RATE (ESR) 03/30/2025 URINALYSIS (UA) 03/30/2025 XR CHEST 2 VIEW PA & LAT 03/30/2025 CBC WITH AUTO DIFF 03/22/2024 CBC WITH AUTO DIFF 10/31/2024 Lipid Panel 03/30/2025 Lipid Panel 08/10/2022 Lipid Panel 03/22/2024 Lipid Panel 10/31/2024 Lipid Panel 04/04/2021 Microalbumin, Random 03/30/2025 Microalbumin, Random 08/10/2022 Microalbumin, Random 03/22/2024 Hemoglobin A1c 03/30/2025 Hemoglobin A1c 08/10/2022 Hemoglobin A1c 10/31/2024 Hemoglobin A1c 03/22/2024 Next Appt Details Provider Name:John Wynn, 05/04/2025 04:00:00 PM, [address] [place] [address] [place], [place], [address], Provider Name:John Kingsley, 04/01/2026 04:00:00 PM, [address] [facility] [place], [place], [address], Insurance Providers Payer Name Payer Address Payer Phone Subscriber Number Group Number Insured Name Patient Relationship to Insured Coverage Start Date Coverage End Date [facility] [address] [place], [place] [id number] [employer] Self - patient is the insured Medical (General) History Medical History History ICD Code hypertension obesity hyperlipidemia smoker COPD retinal detachment left eye 2011 bone sppur left heel retinal detachment right eye 11/2013 colonoscopy 05/2015 negative Type 2 diabetes mellitus The patient is currently on metformin, glyburide, and simvastatin for his diabetes. Anxiety and depression in January 2025 Surgical History Surgery Date(Month/Year) tonsillectomy vasectomy Hospitalization History Reason Date(Month/Year) No history
== END 2025-03-30 16:38 | disposition home or self-care (01) ==
LOC: HO.XRAY 16:37
PROVIDERS: PCP Internal Medicine Medical Oncology; Visit Provider Internal Medicine Medical Oncology
DX: J44.9 Chronic obstructive pulmonary disease, unspecified (principal)
CPT/HCPCS: 71046

== ENCOUNTER → 2025-03-30 16:50 | Outpatient (BNV) | payer OTHER, SELFPAY | PROVIDERS: PCP Internal Medicine Medical Oncology; Visit Provider Radiology Diagnostic Radiology | DX: J98.4 Other disorders of lung (principal) | CPT/HCPCS: 71046 ==